=== PATIENT | female | born 1985 | race African-American/Black ===

== ENCOUNTER 2016-09-08 18:27 | Emergency (ER) | payer SELFPAY ==
[~2016-09-08] VITALS: Ht 162.6 cm; Wt 90.0 kg
[~2016-09-08 18:27] MED LIST: LORTA5 PO; PENI500T PO
[2016-09-08 18:31] VITALS: BP 123/69; PULSE 50; RESP 16; TEMP 97.7; O2SAT 99
--- NOTE | 2016-09-08 19:16 | PD ---
HPI Chief Complaint: Pain: Acute or Chronic Time Seen by Provider: 19:09 Travel History International Travel<30 days: No Contact w/Intl Traveler<30days: No Traveled to known affect area: No History of Present Illness HPI 31-year-old female presents to the emergency room for evaluation of right lower leg pain for the past 1-2 months. Patient states it originally felt like a muscle spasm in the calf that got better momentarily but now has become constant. Localized to the posterior right lower extremity. Denies trauma. It is throbbing, aching in nature. She has taken ibuprofen multiple times without significant relief in symptoms. Pain is worse with ambulation, range of motion, and any movement of the right lower extremity. Relieved with rest and certain positions. Denies paresthesias. Denies personal and family history of DVT, PE. Denies weight loss or history of cancer. PFSH Past Medical History Medical History: Denies Significant Hx Diminished Hearing: No Tetanus Vaccination: < 5 Years ?: Not Past Surgical History Tonsillectomy: Yes Social History Alcohol Use: Yes (OCC) Tobacco Use: Yes (/2 PPD) Substance Use: No Allergies-Medications (Allergen,Severity, Reaction): Coded Allergies: No Known Allergies (Verified , 09/08/16) Reported Meds & Prescriptions Reported Meds & Active Scripts Active Ibuprofen 800 Mg Tab 800 Mg PO Q8H PRN Robaxin (Methocarbamol) 750 Mg Tab 750 Mg PO Q8HR Review of Systems Except as stated in HPI: all other systems reviewed are Neg Physical Exam Narrative GENERAL: Well-nourished, well-developed female in no acute distress. Afebrile. Ambulatory. SKIN: Warm and dry. No erythema or ecchymosis. HEAD: Normocephalic. EYES: No scleral icterus. No injection or drainage. NECK: Supple, trachea midline. No JVD or lymphadenopathy. EXTREMITY: Right calf tenderness to palpation. Full range of motion in all joints. No obvious edema. 2+ dorsalis pedis pulse. Data Data Last Documented VS Vital Signs Date Time Temp Pulse Resp B/P Pulse Ox O2 Delivery O2 Flow Rate FiO2 09/08/16 18:31 97.7 50 16 123/69 99 Orders Tibia/Fibula (Ap/Lat) (09/08/16 ) Us Leg Venous Doppler (09/08/16 ) Ketorolac Inj (Toradol Inj) (09/08/16 20:30) [facility] Medical Decision Making Medical Screen Exam Complete: Yes Emergency Medical Condition: Yes Medical Record Reviewed: Yes Differential Diagnosis Bone lesion versus DVT versus muscle spasm versus arthritis Narrative Course 31-year-old female presents to the emergency room for evaluation of right calf pain for the past 1-2 months. No trauma or injury. Ambulatory since onset. Patient reports constant dull achiness in her posterior calf. Right lower extremity is neurovascularly intact with 2+ dorsalis pedis pulse. No edema, erythema, or ecchymosis. X-ray shows no acute bony abnormality such lesion. Ultrasound is negative. Patient likely has muscle spasm. Discharged with prescriptions for ibuprofen and Robaxin. Told to follow up with her primary care physician or return to the emergency room for worsening symptoms. She understands and agrees to this plan. Diagnosis Primary Impression: Muscle spasm of calf Referrals: Primary Care Physician Patient Instructions: General Instructions, Muscle Spasm (ED) Additional Instructions: Rest and drink plenty of fluids. Take Robaxin as directed, as needed for pain. Take ibuprofen with food as directed, as needed for pain. Apply ice to the affected area for 20 minutes at a time, as needed for pain and swelling. Follow-up with a primary care physician. Return to the emergency room for worsening symptoms. Med/Other Pt SpecificInfo: Prescription(s) given Scripts Ibuprofen 800 Mg [id number] Mg PO Q8H PRN (Pain/Inflammation) #21 TAB Ref 0 Prov:Delphine Law MD 09/08/16 Methocarbamol (Robaxin)750 Mg [id number] Mg PO Q8HR #21 TAB Ref 0 Prov:Delphine Law MD 09/08/16 Disposition: 01 DISCHARGE HOME Condition: Stable Ashleigh Grimes Sep 08, 2016 19:16
--- NOTE | 2016-09-08 19:34 | RADHPO ---
EXAM DATE/TIME: 09/08/2016 19:13 [facility] COMPARISON: No previous studies available for comparison. INDICATIONS : Right lower leg pain for 3 weeks with no known injury MEDICAL HISTORY : None. SURGICAL HISTORY : None. ENCOUNTER: Initial ACUITY: 3 weeks PAIN SCORE: 10/10 LOCATION: Right entire lower leg FINDINGS: Two view examination of the right tibia demonstrates no evidence of fracture or dislocation. Bony mi neralization is normal. The soft tissue structures are intact. CONCLUSION: No acute fracture. Kevin Hunt MD on September 08, 2016 at 19:32 Board Certified Radiologist. This report was verified electronically.
[2016-09-08] MEDS ORDERED: KETOROLAC TROMETHAMINE 60 MG/2 ML (IM) VIAL IM ONE (20:30)
--- NOTE | 2016-09-08 20:56 | RADHPO ---
EXAM DATE/TIME: 09/08/2016 20:10 [facility] COMPARISON: No previous studies available for comparison. INDICATIONS : Right leg pain. MEDICAL HISTORY : Right leg pain. SURGICAL HISTORY : None. ENCOUNTER: Initial ACUITY: 1 month PAIN SCORE: 10/10 LOCATION: Right leg. TECHNIQUE: Venous ultrasound of the leg was performed from the inguinal ligament to the proximal calf. Real-dillan e, color Doppler and spectral tracing, compression and augmentation techniques were used. FINDINGS: There is normal compressibility of the deep venous system from the inguinal region to the proximal ca lf. No echogenic clot is seen in the lumen of the common femoral, femoral, popliteal, and posterior tibial veins. There is a normal response of the venous system to proximal and distal augmentation an d respiration. CONCLUSION: No DVT in the right leg. Kevin Hunt MD on September 08, 2016 at 20:54 Board Certified Radiologist. This report was verified electronically.
[2016-09-08] MEDS ORDERED: ROBA750T PO (21:10)
[2016-09-08] MEDS ORDERED: IBUP800T23 PO (21:10)
== END 2016-09-08 21:24 | disposition home or self-care (01) ==
LOC: PHEFT 18:27
DX: M62.838 Other muscle spasm (principal)
CPT/HCPCS: 73590; 93971; 96372; 99284; J1885

== ENCOUNTER 2017-01-18 08:02 | Emergency (ER) | payer SELFPAY ==
[~2017-01-18] VITALS: Ht 162.6 cm; Wt 111.2 kg
[~2017-01-18 08:02] MED LIST changes: +IBUP800T23 PO; -LORTA5 PO; -PENI500T PO; +ROBA750T PO
[2017-01-18 08:05] VITALS: BP 123/57; PULSE 49; RESP 16; TEMP 98.2; O2SAT 100
--- NOTE | 2017-01-18 08:38 | PD ---
HPI Chief Complaint: Abdominal Pain Time Seen by Provider: 08:24 Travel History International Travel<30 days: No Contact w/Intl Traveler<30days: No Traveled to known affect area: No History of Present Illness HPI This is a 31-year-old female who presents to the emergency department for multiple complaints. She reports that the left side of her throat hurts for one week, constant, mild, with no associated fevers or chills and no cough. She also reports that this morning she had a sharp abdominal pain in her lower abdomen which has since subsided. She denies any dysuria, constipation or diarrhea and denies any vomiting. She is currently on her menstrual cycle. She also reports that for months she's been having pain in her right leg. She' s had an ultrasound and an x-ray here in the emergency department which was reassuring. Patient just didn't feel like she could go to work today because of all of her symptoms. PFSH Past Medical History Medical History: Denies Significant Hx Hx Anticoagulant Therapy: No Diabetes: No Diminished Hearing: No ?: Not LMP: 01/12/2017 Past Surgical History Tonsillectomy: Yes Social History Alcohol Use: Yes (OCC) Tobacco Use: Yes (1/2 PPD) Substance Use: No Allergies-Medications (Allergen,Severity, Reaction): Coded Allergies: No Known Allergies (Verified , 01/18/17) Reported Meds & Prescriptions Reported Meds & Active Scripts Active No Active Prescriptions or Reported Medications Review of Systems Except as stated in HPI: all other systems reviewed are Neg Physical Exam Narrative GENERAL:Well appearing, no acute distress SKIN: Focused skin assessment warm and dry. HEAD: Atraumatic. Normocephalic. EYES: Pupils equal and round. No injection or drainage. ENT: Moist mucous membranes. Mild posterior pharyngeal erythema with no exudates. NECK: Trachea midline. CARDIOVASCULAR: Regular rate and rhythm. No murmur appreciated. RESPIRATORY: Clear to auscultation. Breath sounds equal bilaterally. GASTROINTESTINAL: Abdomen soft, non-tender, nondistended. MUSCULOSKELETAL: No obvious deformities. NEUROLOGICAL: Awake and alert. No obvious cranial nerve deficits. Moving all extremities. PSYCHIATRIC: Appropriate mood and affect; insight and judgment normal. Data Data Last Documented VS Vital Signs Date Time Temp Pulse Resp B/P Pulse Ox O2 Delivery O2 Flow Rate FiO2 01/18/17 08:05 98.2 49 16 123/57 100 MDM Medical Decision Making Medical Screen Exam Complete: Yes Emergency Medical Condition: Yes Interpretation(s) Vital signs are reassuring Differential Diagnosis Urinary tract infection, bowel obstruction, constipation, menorrhagia, strep pharyngitis, viral pharyngitis Narrative Course This is a 31-year-old female who presents to the emergency department with multiple unrelated complaints including leg pain, sore throat and abdominal discomfort. She evidently also discussed with the nurse that she has been constipated although she didn't discuss this with me. She is very well- appearing on exam and has no focal findings to suggest an acute illness. She is somewhat tangential with her history, and she has a bizarre affect with levity that seems incongruent with her being a patient in the emergency department. I don't think any tests are warranted at this time. She may have some underlying psychiatric diagnosis, although I don't think it warrants acute treatment in the ED. She likely would most benefit from a primary care physician. Patient will be discharged home. Diagnosis Primary Impression: Pain Patient Instructions: General Instructions Additional Instructions: If you develop severe chest pain, shortness of breath, sweating, lightheadedness , dizziness or difficulty breathing return to the emergency department immediately. Followup with your primary care physician in 2-3 days if your symptoms are not resolved. Med/Other Pt SpecificInfo: No Change to Meds Scripts No Active Prescriptions or Reported Meds Disposition: 01 DISCHARGE HOME Condition: Stable Didi Gauthier MD January 18, 2017 08:38
== END 2017-01-18 09:10 | disposition home or self-care (01) ==
LOC: PHED 08:02
DX: M79.606 Pain in leg, unspecified (principal); J02.9 Acute pharyngitis, unspecified; R10.9 Unspecified abdominal pain; K59.00 Constipation, unspecified; F17.200 Nicotine dependence, unspecified, uncomplicated
CPT/HCPCS: 99282

== ENCOUNTER 2017-01-23 02:01 | Emergency (ER) | payer SELFPAY ==
[~2017-01-23] VITALS: Ht 162.6 cm; Wt 91.0 kg
[2017-01-23 02:03] VITALS: BP 129/76; PULSE 83; RESP 28; TEMP 98.4; O2SAT 100
[2017-01-23] MEDS ORDERED: SODIUM CHLOR 0.9% 1000 ML INJ 1,000 ML IV SCH (02:04)
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
[2017-01-23] MEDS ORDERED: SODIUM CHLORIDE 0.9% FLUSH 10 ML FLUSH IVF PRN (02:15)
[2017-01-23] MEDS ORDERED: DIPHTH/TETANUS/ACEL PERTUSSIS (BOOSTER) 0.5 ML VIAL/PFS IM ONE (02:15)
[2017-01-23 02:32] LABS: AUTOMATED NEUTROPHIL # 4.4 TH/MM3 (1.8-7.7); BASOPHIL # 0.1 TH/MM3 (0-0.2); BASOPHIL % 0.7 % (0.0-2.0); EOSINOPHIL # 0.2 TH/MM3 (0-0.4); HEMO FLAGS DIFF FINAL; LYMPH % 43.4 % (9.0-44.0); LYMPHOCYTE # 4.5 TH/MM3 (1.0-4.8); MEAN CELL VOLUME 89.9 FL (80.0-100.0); MEAN CORPUSCULAR HEMOGLOBIN 30.1 PG (27.0-34.0); MEAN CORPUSCULAR HGB CONC 33.5 % (32.0-36.0); MONO % 10.6 % (0.0-8.0); NEUT % 43.3 % (16.0-70.0); PLATELET COUNT 253 TH/MM3 (150-450); RED BLOOD COUNT 4.57 MIL/MM3 (4.00-5.30); RED CELL DISTRIBUTION WIDTH 13.3 % (11.6-17.2); WHITE BLOOD COUNT 10.3 TH/MM3 (4.0-11.0)
[2017-01-23] MEDS ORDERED: IOHEXOL 350 MG/ML 10 ML VIAL (for RAD DIAG) IV ONE (02:39)
[2017-01-23 02:40] LABS: INTERNATIONAL NORMALIZED RATIO 0.9 RATIO; PROTHROMBIN TIME - PATIENT 10.1 SEC (9.8-11.6)
[2017-01-23] MEDS ORDERED: MORPHINE SULFATE 8 MG/ML INJ ONE (02:44)
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
[2017-01-23 02:54] LABS: POTASSIUM 3.4 MEQ/L (3.5-5.1)
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
[2017-01-23] MEDS ORDERED: HYDR-3516 PO (03:23)
[2017-01-23 03:53] VITALS: BP 128/75
== END 2017-01-23 03:55 | disposition home or self-care (01) ==
LOC: NEPE 02:01
DX: S81.802A Unspecified open wound, left lower leg, initial encounter (principal); S31.809A Unspecified open wound of unspecified buttock, initial encounter; F17.200 Nicotine dependence, unspecified, uncomplicated; Z23 Encounter for immunization; W34.00XA Accidental discharge from unspecified firearms or gun, initial encounter; Y92.008 Other place in unspecified non-institutional (private) residence as the place of occurrence of the external cause
CPT/HCPCS: 72170; 74000; 74174; 80048; 85025; 85610; 85730; 86850; 86900; 86901; 90471; 90715; 96361; 96374; 99285; J2270; J7030; Q9967

== ENCOUNTER 2017-07-09 07:43 | Emergency (ER) | payer SELFPAY ==
[~2017-07-09] VITALS: Ht 162.6 cm; Wt 110.3 kg
[~2017-07-09 07:43] MED LIST changes: +HYDR-3516 PO; -IBUP800T23 PO; -ROBA750T PO
[2017-07-09 07:46] VITALS: BP 119/62; PULSE 67; RESP 16; TEMP 97.6; O2SAT 98
[2017-07-09] MEDS ORDERED: ACETAMINOPHEN 325 MG TAB PO ONE (08:15)
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
== END 2017-07-09 08:36 | disposition home or self-care (01) ==
LOC: PHED 07:43
DX: S81.802D Unspecified open wound, left lower leg, subsequent encounter (principal); F17.200 Nicotine dependence, unspecified, uncomplicated; W34.00XD Accidental discharge from unspecified firearms or gun, subsequent encounter
CPT/HCPCS: 99282